=== PATIENT | female | born 1975 | race Caucasian/White ===

== ENCOUNTER → 2017-04-23 | Outpatient (CLI) | payer OTHER | LOC: FIMAGING 09:42 | PROVIDERS: ATTEND Obstetrics & Gynecology | DX: O09.522 Supervision of elderly multigravida, second trimester (principal); Z3A.19 19 weeks gestation of pregnancy ==

== ENCOUNTER 2017-09-07 06:00 | Inpatient (IN) | payer OTHER ==
[2017-09-07] MEDS ORDERED: LR 1,000 ML IV PRN ×2 (07:06→12:04)
[2017-09-07] MEDS ORDERED: TERBUTALINE SULFATE 1 MG/ML VIAL IV PRN ×2 (07:06→12:04)
[2017-09-07] MEDS ORDERED: OXYTOCIN 20 UNIT in LR 1,000 ML IV PRN ×2 (07:06→12:04)
[2017-09-07] MEDS ORDERED: EPSOM SALT 454 GM TP PRN ×2 (07:06→12:04)
[2017-09-07] MEDS ORDERED: OLIVE OIL 118 ML BTL MISC PRN ×2 (07:06→12:04)
[2017-09-07] MEDS ORDERED: MISOPROSTOL 200 MCG TAB PR PRN (07:06)
[2017-09-07] MEDS ORDERED: IBUPROFEN 600 MG TAB PO PRN (07:06)
[2017-09-07] MEDS ORDERED: OXYTOCIN 10 UNIT/ML VIAL ONE ×2 (07:48→10:09)
[2017-09-07 07:49] LABS: PLATELET COUNT 150 10^3/uL (150-400)
--- NOTE | 2017-09-07 09:17 | SOAPPROG ---
SOAP Progress Note Assessment/Plan: Assessment: Patient admitted for labor induction. Acupuncture consult ordered to support "downward movement" and encourage labor. Treatment: Auricular: BFA - cigular gyrus, point zero, thalamus, [place] 2, peck men e-stim: BL 23 - 32 bilateral R LI 4 - L SP 6 R GB 34 - ST 36 Right Side: GB 34 - Open the cervix. GB 40 - relax the waist. GB 41 - Master of the Lucille Alea, Belt [place], relax the waist. BL 65 - Yadi point of BL, relax paraspinals, encourage downward movement. BL 67 - Patito well, encourage downward movement. ST 36 - Increase energy, support the ST. Ling Gu - Relax the low back. Da Julia - Relax the low back. LI 4 - Circulate, move the qi. Left Side: SP 6 - Support the three yin: LR, KI, SP, encourage movement. LR 3 - Stimulate blood flow. Circulate LR blood. SP 4 - Master of the Castellanos Alea, encourage uterine contraction. SP 8 - Xi-Cleft, regulate SP Plan: Patient knows acupuncture can be requested again later in the day and post- . 09/07/17 08:58 Objective: Laboratory Results 09/07/17 07:30
[2017-09-07] MEDS ORDERED: LR 500 ML IV PRN ×2 (11:58→12:04)
[2017-09-07] MEDS ORDERED: OXYTOCIN 30 UNIT in NS 500 ML IV SCH ×2 (12:00→12:04)
[2017-09-07] MEDS ORDERED: AMMONIA AROMATIC 1 EACH AMP IH PRN (12:04)
[2017-09-07] MEDS ORDERED: MISOPROSTOL 200 MCG TAB PO PRN (12:04)
[2017-09-07] MEDS ORDERED: OLIVE OIL 118 ML BTL ONE (12:25)
[2017-09-07] MEDS ORDERED: LIDOCAINE 1% 300 MG/30 ML SDV ONE (12:25)
--- NOTE | 2017-09-07 13:14 | GHP ---
[f rep st] PREOP HISTORY AND PHYSICAL DATE OF ADMISSION: 09/07/2017 HISTORY: Upon admission, the patient is a 42-year-old G3, A2, with an estimated due date of 09/15/2017, who is 38w6d and presents for induction of labor due to IUGR noted on 09/06. The patient has had regular surveillance for her due to advanced maternal age and had a 3rd trimester ultrasound performed at 30 weeks' gestation, which showed appropriate growth, with an estimated weight at the 27th percentile and a normal grade 2 placenta with normal fluid. The patient began twice-weekly NSTs, which have been reactive pattern. The patient, upon routine exam on 09/06, was measuring small, and an ultrasound was performed for growth and fluid. The estimated weight now is 9th percentile, with normal fluid and slightly increased Dopplers at 88 percentile. The patient was advised, due to her gestation at 38+ weeks, inducing for IUGR. The patient was advised to have a Gabriel catheter placed on the night before induction to ripen her cervix, which was closed and long but soft. The patient had a Gabriel catheter placed late afternoon and had cramping throughout the night. She only had scant bleeding and good movement. Bag of water is intact upon admission. The patient is fatigued upon admission due to the sleepless night. CARE: The patient has been followed by [facility] since 9 weeks' gestation. In the past, the patient has seen a psychiatrist due to depression and anxiety, with a questionable diagnosis of bipolar disorder in the past. She was given a prescription for Lexapro but did not ever fill it throughout the . In the past, she was on Lamictal; however, this was years ago. The patient had a level 2 anatomy ultrasound that was normal at 20 weeks, with the estimated weight of the 78th percentile. The patient has really managed the symptoms of well. Has seen chiropractor help for scapular pain. Additional ultrasounds were performed, and results noted above, with progressive drop in estimated weight, to now at the 9th percentile. LABS: Include maternal blood type O positive with negative antibody screen. RPR nonreactive. Rubella immune. Hepatitis B surface antigen negative. HIV negative. Standard genetic panel was negative. Baseline hematocrit was 39%, which dropped to 36% in mid , but remained stable. Urinalysis and culture were negative. Pap smear normal. Gonorrhea and chlamydia were negative. Verifi testing was negative, and MSAFP was negative. 1-hour Glucola normal. GBS culture was negative. PAST MEDICAL HISTORY: History of oral HSV, history of lactose intolerance. History of depression/anxiety, with questionable diagnosis of bipolar type 2 in the past. PAST SURGICAL HISTORY: Bilateral benign cysts removed in 1994 and 2004. Odontectomy in high school. Egg retrieval x2. PAST OBSTETRIC HISTORY: In 2014, a TAB with medical treatment. No D and C used. In June 2016, an SAB, treated with Cytotec. ALLERGIES: The patient has no known drug allergies. CURRENT MEDICATIONS: vitamins, vitamin D, acyclovir p.r.n. SOCIAL HISTORY: The patient is partnered. He is present and supportive. The patient is a nonsmoker. No alcohol or drug use. PHYSICAL EXAM: GENERAL: Upon admission, the patient is a well-developed, well- nourished, anxious female in no physical distress upon admission. The patient does look tired and reports a sleepless night with cramping. Reports the cramps did decrease about 5:30 a.m. VITAL SIGNS: All normal, and the patient is afebrile. See nursing documentation for full details. heart tones reveal a category 1 tracing, with baseline in the 110s, with good variability and accelerations. Contractions have been noted every 5-8 minutes, and increasing on Pitocin. Palpably mild. PELVIC: Performed, and the Gabriel catheter was removed. The cervix is 3 cm dilated, 70% effaced, at -1 station. Bag of alejandra intact. EXTREMITIES: Nontender. No edema. ASSESSMENT: Intrauterine at 38+ weeks gestation, here for induction due to intrauterine growth restriction and advanced maternal age. Cervical ripening done last night with Gabriel catheter. The patient currently on Pitocin for induction. PLAN: Offered the patient AROM, and currently she would like to get some Benadryl and try to rest, as she is very tired. Will recommend AROM if the Pitocin is increased to over 20 milliunits per minute. GBS is negative. The patient is at increased risk of depression due to history of depression and anxiety. We will have her have a close followup with her psychiatrist and offer [facility], if desired. /[id number]/MODL MTDD
[2017-09-07] MEDS ORDERED: PHENYLEPHRINE HCL 100 MCG/ML SYR ONE (15:41)
[2017-09-07] MEDS ORDERED: BUPIVACAINE 0.25% 30 ML SDV ONE (15:41)
[2017-09-07] MEDS ORDERED: fentaNYL 100 MCG/2 ML INJ ONE (15:42)
[2017-09-07] MEDS ORDERED: ONDANSETRON 4 MG/2 ML VIAL IVP PRN (15:44)
[2017-09-07] MEDS ORDERED: NALOXONE HCL 0.4 MG/ML INJ IVP PRN (15:44)
[2017-09-07] MEDS ORDERED: PHENYLEPHRINE HCL 100 MCG/ML SYR IVP PRN (15:44)
[2017-09-07] MEDS ORDERED: LR 500 ML IV SCH (16:00)
[2017-09-07] MEDS ORDERED: fentaNYL 2MCG/ML/BUP 0.1% RTU 100 ML EP SCH (16:00)
[2017-09-07] MEDS ORDERED: fentaNYL 200 MCG, BUPIVACAINE 0.5% 20 ML in NS 100 ML EP SCH (16:00)
[2017-09-07] MEDS ORDERED: ATROPINE SULFATE 0.4 MG/ML VIAL ONE (16:11)
--- NOTE | 2017-09-07 16:35 | PREANESOB ---
Obstetric Pre-Anesthesia Info - General Info Proposed Procedure: labor : 3 Para: 0 CAROLYNN: 09/15/17 Gestational Age: 38 week(s) and 6 day(s) - Info Status: Full Term Monitors: External FHR Pattern: Reassuring - Labor Status Labor Epidural: Proposed (see other software for more obstetrical information) Anesthesia ROS: denies problems with heart, lungs, kidneys, liver, coag, or spine. denies problems with this except iugr. current meds are pnv, pitocin, and nitrous oxide. platelets are 150k. hgb 12.3. previous surgeries include IVF and a wrist surgery with no anesthesia problems. fam hx of anesthetic problems is neg. Allergies/Adverse Reactions: Allergy/AdvReac Type Severity Reaction Status Date / Time No Allergies [NKDA] Allergy Verified 09/06/17 16:43 Home Medications: Medication Instructions Recorded 1 tab PO DAILY 09/07/17 Visit Medications: Generic Name Dose Route Start Last Admin Trade Name Freq PRN Reason Stop Dose Admin Ammonia (Aromatic Spirit) 1 each 09/07/17 12:04 Ammonia Aromatic IH 09/17/17 12:03 ONCE PRN Fainting Diphenhydramine HCl 25 mg 09/07/17 11:58 09/07/17 12:06 Benadryl Injection IVP 03/06/18 11:57 25 mg Q4HRS PRN Administration Itching Diphenhydramine HCl 25 - 50 mg 09/07/17 15:44 Benadryl Injection IVP 03/06/18 15:43 Q6HRS PRN Itching Ephedrine Sulfate 10 mg 09/07/17 15:44 Ephedrine Sulfate IV 03/06/18 15:43 .Q2M PRN Hypotension Lactated Ringer's 1,000 mls @ 0 mls/hr 09/07/17 07:06 09/07/17 08:00 Lr IV 09/08/17 07:05 1,000 mls PRN PRN Administration SEE PROTOCOL CONDITIONS Protocol Per Protocol Oxytocin 20 unit/ Lactated 1,002 mls @ 150 mls/hr 09/07/17 07:06 Ringer's IV PRN PRN Post- bleeding Lactated Ringer's 500 mls @ 500 mls/hr 09/07/17 11:58 Lr IV 09/08/17 11:58 PRN PRN Maternal Hypotension Oxytocin 30 unit/ Sodium 503 mls @ 0 mls/hr 09/07/17 12:00 09/07/17 08:00 Chloride IV 03/06/18 11:59 503 mls CONT HARLEY Administration Protocol Per Protocol Lactated Ringer's 500 mls @ 500 mls/hr 09/07/17 12:04 Lr IV 09/07/17 16:44 PRN PRN Maternal Hypotension Lactated Ringer's 1,000 mls @ 0 mls/hr 09/07/17 12:04 Lr IV 09/08/17 12:03 PRN PRN SEE PROTOCOL CONDITIONS Protocol Per Protocol Oxytocin 30 unit/ Sodium 503 mls @ 0 mls/hr 09/07/17 12:04 Chloride IV 03/06/18 12:03 CONT HARLEY Protocol Per Protocol Oxytocin 20 unit/ Lactated 1,002 mls @ 150 mls/hr 09/07/17 12:04 Ringer's IV PRN PRN Post- bleeding Lactated Ringer's 500 mls @ 0 mls/hr 09/07/17 16:00 Lr IV 03/06/18 15:59 CONT HARLEY As Directed Fentanyl 200 mcg/ Bupivacaine 100 mls @ 0 mls/hr 09/07/17 16:00 HCl 20 ml/ Sodium Chloride EP 09/17/17 15:59 CONT HARLEY Protocol As Directed Ibuprofen 600 mg 09/07/17 07:06 Motrin PO 03/06/18 07:05 Q6HRS PRN post , inflammation Ibuprofen 600 mg 09/07/17 12:04 Motrin PO 03/06/18 12:03 Q6HRS PRN post , inflammation Magnesium Sulfate 454 gm 09/07/17 07:06 Epsom Salt TP 03/06/18 07:05 Q1H PRN perineal discomfort Magnesium Sulfate 454 gm 09/07/17 12:04 Epsom Salt TP 03/06/18 12:03 Q1H PRN perineal discomfort Misoprostol 800 - 1,000 mcg 09/07/17 07:06 Cytotec VT ONCE PRN Vaginal Atony/Bleeding Misoprostol 800 - 1,000 mcg 09/07/17 12:04 Cytotec PO 03/06/18 12:03 ONCE PRN Vaginal Atony/Bleeding Naloxone HCl 0.4 mg 09/07/17 15:44 Narcan IVP 03/06/18 15:43 PRN PRN Respiratory depression [place] Oil 118 ml 09/07/17 07:06 Sweet Oil MISC 03/06/18 07:05 ONCE PRN perineal massage [place] Oil 118 ml 09/07/17 12:04 Sweet Oil MISC 03/06/18 12:03 ONCE PRN perineal massage Ondansetron HCl 4 mg 09/07/17 15:44 Zofran IVP 09/08/17 15:43 Q4HRS PRN Nausea/Vomiting, Can't Take PO Phenylephrine HCl 100 mcg 09/07/17 15:44 Neosynephrine IVP 03/06/18 15:43 .Q2M PRN Hypotension Terbutaline Sulfate 0.25 mg 09/07/17 07:06 Brethine IV 03/06/18 07:05 ONCE PRN Tachysystole Terbutaline Sulfate 0.25 mg 09/07/17 12:04 Brethine IV 03/06/18 12:03 ONCE PRN Tachysystole Discontinued Medications Generic Name Dose Route Start Last Admin Trade Name Freq PRN Reason Stop Dose Admin Atropine Sulfate Confirm 09/07/17 16:11 Atropine Sulfate Administered 09/07/17 16:12 Dose 0.4 mg .ROUTE .STK-MED ONE Bupivacaine HCl Confirm 09/07/17 15:41 Sensorcaine 0.25% Sdv Administered 09/07/17 15:42 Dose 30 ml .ROUTE .STK-MED ONE Diphenhydramine HCl Confirm 09/07/17 12:01 Benadryl Injection Administered 09/07/17 12:02 Dose 50 mg .ROUTE .STK-MED ONE Fentanyl Confirm 09/07/17 15:42 Sublimaze Administered 09/07/17 15:43 Dose 100 mcg .ROUTE .STK-MED ONE Fentanyl/Bupivacaine HCl 100 mls @ 0 mls/hr 09/07/17 16:00 Fentanyl/Bupivacaine/Ns 2 Mcg/Ml 0.1% (Premix EP 09/17/17 15:59 CONT HARLEY Protocol As Directed Lidocaine HCl Confirm 09/07/17 12:25 Lidocaine Hcl 1% Administered 09/07/17 12:26 Dose 300 mg .ROUTE .STK-MED ONE [place] Oil Confirm 09/07/17 12:25 Sweet Oil Administered 09/07/17 12:26 Dose 118 ml .ROUTE .STK-MED ONE Oxytocin Confirm 09/07/17 07:48 Pitocin Administered 09/07/17 07:49 Dose 30 unit .ROUTE .STK-MED ONE Oxytocin Confirm 09/07/17 10:09 Pitocin Administered 09/07/17 10:10 Dose 10 unit .ROUTE .STK-MED ONE Phenylephrine HCl Confirm 09/07/17 15:41 Neosynephrine Administered 09/07/17 15:42 Dose 1,000 mcg .ROUTE .STK-MED ONE - Anesthesia History Response to Local Anesthetics: Normal Anesthesia & Operative History: No Prior Problems Family Anesthesia History: Negative - Social History Substance Use/Abuse: Denies - Vital Signs Height/Weight (Nursing): Height 167.64 cm Weight 66.678 kg - Focused Exam Neck exam: FROM Mallampati Score: Class 2 Mouth exam: normal dental/mouth exam Pulmonary: no respiratory distress Cardiovascular: regular rate and rhythym (slow, atheletic heart rate shanon 30-40 range) Labs: 09/07/17 07:30 Patient ABO/Rh O POSITIVE 09/07/17 07:30 - Plan Anesthetic Plan: talia Consent Signed and on Chart: Yes Patient/Guardian Understands and Agrees to Plan: Yes Urgent/Emergent Case: Jaci bonds completed preop but documented later for safe timely pt care (see vital signs on other software)
[2017-09-07] MEDS ORDERED: LIDO/EPI 2% **for epidural** 20 ML SDV ONE (17:12)
--- NOTE | 2017-09-07 17:44 | OBPROG ---
Labor Progress Note Assessment/Plan: Assessment: IUP at 38+ wks IUGR, sl elevated dopplers induction Plan: active labor, now CHARANJIT and getting more comfort 09/07/17 17:40 Subjective/Intrapartum Course: 09/07/17 17:41 Pt doing much better with CHARANJIT, still aware and having to breathe with contractions Objective: 09/07/17 07:30 Patient ABO/Rh O POSITIVE 09/07/17 07:30 - SVE Dilation (cm): 6 Effacement (%): 90 (95) Station: 0 Membranes: Intact - Contraction Pattern Assessment Current Contraction Pattern: Regular (q 2-3 on 12 mu/min pit) - FHR Assessment Deras FHR (bpm): 130 FHR Pattern Variability: Moderate FHR Category: 1 Oxytocin Orders Assessment - Pre-Induction/Augmentation Assessment Gestational Age: 38 week(s) and 6 day(s) ICD10 Worksheet Patient Problems: Problems Problem Status Onset IUGR (intrauterine growth restriction) affecting care of mother Acute - ICD10 Problem Qualifiers (1) IUGR (intrauterine growth restriction) affecting care of mother
--- NOTE | 2017-09-07 19:06 | OBPROG ---
Labor Progress Note Assessment/Plan: Assessment: IUP at 38+ wks IUGR, sl elevated dopplers complete and pushing Plan: comf with CHARANJIT and pushing with good effort variable decels but mod variability 09/07/17 17:40 09/07/17 19:03 Subjective/Intrapartum Course: 09/07/17 17:41 Pt doing much better with CHARANJIT, still aware and having to breathe with contractions 09/07/17 19:04 Pt doing well. tired. but so excited to be complete. pushing now about 30 min Objective: 09/07/17 07:30 Patient ABO/Rh O POSITIVE 09/07/17 07:30 - SVE Dilation (cm): 10 Effacement (%): 100 Station: +1 Membranes: AROM (18:13), Intact Amniotic Fluid Color: Clear Dilation Complete Date: 09/07/17 Dilation Complete Time: 18:15 - Contraction Pattern Assessment Current Contraction Pattern: Regular (q 2-3 on 4 mu/min pit, pitocin decreased after decels with rapid progress) - FHR Assessment Deras FHR (bpm): 140 FHR Pattern Variability: Moderate FHR Category: 2 (variables) - Procedures Non-surgical Procedures: Amniotomy Oxytocin Orders Assessment - Pre-Induction/Augmentation Assessment Gestational Age: 38 week(s) and 6 day(s) ICD10 Worksheet Patient Problems: Problems Problem Status Onset IUGR (intrauterine growth restriction) affecting care of mother Acute - ICD10 Problem Qualifiers (1) IUGR (intrauterine growth restriction) affecting care of mother
[2017-09-07] MEDS ORDERED: ACETAMINOPHEN 325 MG TAB PO PRN (20:24)
--- NOTE | 2017-09-07 20:35 | OBDEL ---
Info Type: Vaginal Presentation at Delivery: Vertex L&D Analgesia/Anesthesia Type: Epidural GBS+: No Intrapartum Medications: Generic Name Dose Route Start Last Admin Trade Name Freq PRN Reason Stop Dose Admin Diphenhydramine HCl 25 mg 09/07/17 11:58 09/07/17 12:06 Benadryl Injection IVP 03/06/18 11:57 25 mg Q4HRS PRN Administration Itching Lactated Ringer's 1,000 mls @ 0 mls/hr 09/07/17 07:06 09/07/17 08:00 Lr IV 09/08/17 07:05 1,000 mls PRN PRN Administration SEE PROTOCOL CONDITIONS Protocol Per Protocol Oxytocin 30 unit/ Sodium 503 mls @ 0 mls/hr 09/07/17 12:00 09/07/17 08:00 Chloride IV 03/06/18 11:59 503 mls CONT HARLEY Administration Protocol Per Protocol - Hospital Course Intrapartum: 09/07/17 17:41 Pt doing much better with CHARANJIT, still aware and having to breathe with contractions 09/07/17 19:04 Pt doing well. tired. but so excited to be complete. pushing now about 30 min Indications for Delivery: Growth Restriction w/Abnormal Doppler studies Vaginal Delivery - Delivery Provider Delivery Physician/CNM: Amber Conner - Labor and Delivery Onset of Contractions Date: 09/07/17 Onset of Contractions Time: 14:00 Onset of Contractions Type: Induced Rupture of Membranes Date: 09/07/17 Rupture of Membranes Time: 18:13 Rupture of Membranes Type: Artificial Amniotic Fluid Color: Clear Dilation Complete Date: 09/07/17 Dilation Complete Time: 18:15 Placenta Delivery Date: 09/07/17 Placenta Delivery Time: 20:08 Total Hours of Labor: 6 Non-surgical Procedures: Amniotomy Laceration: Other (Specify) (none) Vaginal Sponge Count Correct: Yes Vaginal Needle Count Correct: Yes Vaginal Sweep Performed: No EBL: 300 Delivery Events: Other (Specify) (terminal mec) - Medications Labor Augmentation/Induction Methods Used: Pitocin Labor Augmentation/Induction Indication: IUGR [place] Data CAROLYNN: 09/15/17 Gestational Age: 38 week(s) and 6 day(s) Deras Delivery Date: 09/07/17 Delivery Time: 20:01 Sex of Infant: Male (Jagdeep) Score (1 Min): 8 Score (5 Min): 9 ICD10 Worksheet Patient Problems: Problems Problem Status Onset (spontaneous vaginal delivery) Acute - ICD10 Problem Qualifiers (1) IUGR (intrauterine growth restriction) affecting care of mother
--- NOTE | 2017-09-07 20:38 | POSTANESTH ---
Post Anesthetic Evaluation Cardiovascular Status: Normal, Stable Respiratory Status: Normal, Stable Level of Consciousness/Mental Status: Can Participate in Eval Pain Control: Adequate, Prn Tx Ordered Nausea/Vomiting Control: Adequate, Prn Tx Ordered Complications Possibly Related to Anesthesia: None Noted (epidural receding normally.)
--- NOTE | 2017-09-07 21:24 | PDMN ---
Medical Necessity Medical necessity: C/M review: Patient meets INPT crtieria [place] [id number] Vaginal delivery: viable male .
[2017-09-07] MEDS: IBUPROFEN 600 MG TAB PO PRN (22:31)
[2017-09-08] MEDS: IBUPROFEN 600 MG TAB PO PRN ×3 (04:17→17:05)
[2017-09-08] MEDS: IRON POLYSAC/IRON HEME 28 MG TAB PO SCH (10:11)
--- NOTE | 2017-09-08 13:03 | OBPP ---
Progress Note Assessment/Plan: Assessment: PPD1 s/p - IOL for IUGR at 36 wks. Routine advancements, likely home tomorrow. Will add on H/H for tomorrow AM before discharge, pt had been anemic on iron during . H/o depression/anxiety with no meds. Subjective/ Course: 09/08/17 13:02 Elida is doing great, not a lot of sleep. Pumping for baby in between attempts to breastfeed. Baby doing well. Pain well controlled, no acute issues. Objective: 09/07/17 07:30 Patient ABO/Rh O POSITIVE 09/07/17 07:30 Temp Pulse Resp BP Pulse Ox 36.4 C 52 L 14 108/64 95 09/08/17 08:39 09/08/17 08:39 09/08/17 08:39 09/08/17 08:39 09/08/17 08:39 Uterine Position/Fundal Height: At Umbilicus Uterine Tone: Firm
[2017-09-08 20:08] VITALS: RESP 16
[2017-09-09] MEDS: IBUPROFEN 600 MG TAB PO PRN ×3 (01:28→14:56)
[2017-09-09] MEDS: IRON POLYSAC/IRON HEME 28 MG TAB PO SCH (08:40)
[2017-09-09 09:21] VITALS: BP 122/76; PULSE 46; TEMP 97.1; O2SAT 98
--- NOTE | 2017-09-09 12:17 | OBPP ---
Progress Note Assessment/Plan: Assessment: PPD 2 s/p mild anemia Plan: D/C home, iron daily 09/07/17 17:40 09/07/17 19:03 09/09/17 12:15 Subjective/ Course: 09/08/17 13:02 Elida is doing great, not a lot of sleep. Pumping for baby in between attempts to breastfeed. Baby doing well. Pain well controlled, no acute issues. 09/09/17 12:16 Pt doing well. Working on BF with improving latch. bld has lessened. urinating fine. ibu is helping soreness. Objective: 09/09/17 01:35 Patient ABO/Rh O POSITIVE 09/07/17 07:30 Temp Pulse Resp BP Pulse Ox 36.2 C 46 L 16 122/76 H 98 09/09/17 08:00 09/09/17 08:00 09/09/17 08:00 09/09/17 08:00 09/09/17 08:00 Uterine Position/Fundal Height: Umbilicus -1 Uterine Tone: Firm Physical Exam - Physical Exam Abdomen: non-tender, soft, other (FF at umb -1) Extremities: non-tender, pedal edema (mild) Skin: normal color, warm/dry Neuro/Psych: alert, normal mood/affect
--- NOTE | 2017-09-09 12:18 | OBGCSDC ---
General Delivery Information - General Info : 3 Para: 1 Abortions: 2 Type: Vaginal L&D Analgesia/Anesthesia Type: Epidural Admission Date: 09/07/17 Labs: Patient ABO/Rh O POSITIVE 09/07/17 07:30 Hct 35.8 % (38.0-47.0) L 09/09/17 01:35 - Hospital Course Intrapartum: 09/07/17 17:41 Pt doing much better with CHARANJIT, still aware and having to breathe with contractions 09/07/17 19:04 Pt doing well. tired. but so excited to be complete. pushing now about 30 min : 09/08/17 13:02 Eldia is doing great, not a lot of sleep. Pumping for baby in between attempts to breastfeed. Baby doing well. Pain well controlled, no acute issues. 09/09/17 12:16 Pt doing well. Working on BF with improving latch. bld has lessened. urinating fine. ibu is helping soreness. Vaginal - Delivery Provider Delivery Physician/CNM: Amber Conner - Diagnosis Labor: Induced Rupture of Membranes Type: Artificial Amniotic Fluid Color: Clear Laceration: Other (Specify) (none) Delivery Events: Other (Specify) (terminal mec) - Procedures Non-surgical Procedures: Amniotomy - Delivery Non-surgical Procedures: Amniotomy EBL: 300 Data CAROLYNN: 09/15/17 Gestational Age: 39 week(s) and 1 day(s) Deras Delivery Date: 09/07/17 Delivery Time: 20:01 Sex of : Male (Jagdeep) Score (1 Min): 8 Score (5 Min): 9 Discharge Information - Discharge Information Condition: Good Instruction/Follow Up: See Instruction Sheet, Four Weeks (with therapist), Six Weeks (with provider)
== END 2017-09-09 16:55 | disposition home or self-care (01) | DRG 775 ==
LOC: FLD 06:31 → FOB 22:23
PROVIDERS: ADMIT Obstetrics & Gynecology; ATTEND Obstetrics & Gynecology
PROC: 10E0XZZ Delivery of Products of Conception, External Approach (ICD-10-PCS; principal; 2017-09-07)
PROC: 10907ZC Drainage of Amniotic Fluid, Therapeutic from Products of Conception, Via Natural or Artificial Opening (ICD-10-PCS; principal; 2017-09-07)
PROC: 3E033VJ Introduction of Other Hormone into Peripheral Vein, Percutaneous Approach (ICD-10-PCS; principal; 2017-09-07)
DX: O36.5930 Maternal care for other known or suspected poor fetal growth, third trimester, not applicable or unspecified (principal); Z3A.39 39 weeks gestation of pregnancy; Z37.0 Single live birth
CPT/HCPCS: J0461; J1200; J2370; J2590; J3010

== ENCOUNTER → 2018-10-04 | Outpatient (CLI) | payer OTHER | LOC: FIMAGING 14:10 | PROVIDERS: ATTEND Naturopath | DX: Z12.31 Encounter for screening mammogram for malignant neoplasm of breast (principal) ==